=== PATIENT | female | born 1990 | race African-American/Black ===

== ENCOUNTER 2017-12-03 16:30 | Emergency (ER) | payer BC, OTHER ==
--- NOTE | 2017-12-03 17:34 | ER Document Report ---
ED Medical Screen (RME) - General Chief Complaint: Breathing Difficulty Stated Complaint: DIFFICULTY BREATHING Time Seen by Provider: 12/03/17 17:28 Mode of Arrival: Ambulatory Information source: Patient TRAVEL OUTSIDE OF THE [place] IN LAST 30 DAYS: No - HPI Onset: Yesterday Onset/Duration: Gradual, Intermittent Context: Patient has prior history of asthma, asymptomatic for last couple of years. Quality of pain: Other - HEAVINESS Associated Symptoms: Chest pain - DISCOMFORT, Shortness of breath Exacerbated by: Denies Relieved by: Denies Similar symptoms previously: Yes - NOT RECENT Recently seen / treated by doctor: No - Related Data Smoking: Non-smoker Frequency of alcohol use: None Drug Abuse: None Allergies/Adverse Reactions: No Known Allergies Allergy (Verified 12/03/17 16:31) Past Medical History - General Information source: Patient - Social History Cigarette use (# per day): No Chew tobacco use (# tins/day): No Frequency of alcohol use: None Drug Abuse: None Lives with: Spouse/Significant other Family history: None - Past Medical History Cardiac Medical History: Reports: None Pulmonary Medical History: Reports: Hx Asthma Neurological Medical History: Reports: Hx Seizures Endocrine Medical History: Reports: None Renal/ Medical History: Reports: None. Denies: Hx Peritoneal Dialysis Malignancy Medical History: Reports: None GI Medical History: Reports: None Musculoskeltal Medical History: Reports None Psychiatric Medical History: Reports: None Surgical Hx: Negative Review of Systems - Review of Systems Constitutional: No symptoms reported EENT: No symptoms reported Cardiovascular: See HPI Respiratory: See HPI Gastrointestinal: No symptoms reported Female Genitourinary: No symptoms reported Musculoskeletal: No symptoms reported Skin: No symptoms reported Neurological/Psychological: No symptoms reported Physical Exam - Vital signs Vitals: Temp Pulse Resp BP Pulse Ox 98.6 F 82 18 127/75 H 100 12/03/17 16:34 12/03/17 16:34 12/03/17 16:34 12/03/17 16:34 12/03/17 16:34 Interpretation: Normal. No: Tachycardic, Hypoxic, Tachypneic, Febrile - General General appearance: Appears well, Alert In distress: None - HEENT Head: Normocephalic Eyes: Normal Conjunctiva: Normal Ears: Normal Nasal: Normal Mouth/Lips: Normal Mucous membranes: Normal - Respiratory Respiratory status: No respiratory distress Breath sounds: Normal - Cardiovascular Rhythm: Regular Heart sounds: Normal auscultation Murmur: No - Abdominal Inspection: Normal, Obese - Extremities General upper extremity: Normal inspection General lower extremity: Normal inspection. No: Tender, Edema - Neurological Neuro grossly intact: Yes Cognition: Normal Orientation: AAOx4 - Psychological Associated symptoms: Normal affect, Normal mood - Skin Skin Temperature: Warm Skin Moisture: Dry Skin Color: Normal Skin Turgor: Elastic Course - Vital Signs Vital signs: Temp Pulse Resp BP Pulse Ox 98.6 F 82 18 127/75 H 100 12/03/17 16:34 12/03/17 16:34 12/03/17 16:34 12/03/17 16:34 12/03/17 16:34 Doctor's Discharge - Discharge Clinical Impression: Asthma exacerbation, mild Condition: Stable Disposition: HOME, SELF-CARE Instructions: Asthma ([facility]), Inhaled Bronchodilators ([facility]) Additional Instructions: USE ALBUTEROL INHALER DIRECTED, NEEDED FOR ASTHMA SYMPTOMS. AVOID SMOKE, DUST, AND FUMES. FOLLOW UP WITH YOUR PRIMARY CARE PROVIDER. Prescriptions: Albuterol Sulfate [Proair HFA] 8.5 gm IH Q4HP PRN #2 [email or web address] PRN Reason: For Wheezing
[2017-12-03 17:53] VITALS: BP 131/72
== END 2017-12-03 17:55 | disposition home or self-care (01) ==
LOC: ER 16:30
DX: J45.901 Unspecified asthma with (acute) exacerbation (principal)
CPT/HCPCS: 99284

== ENCOUNTER 2017-12-08 09:35 | Emergency (ER) | payer BC ==
--- NOTE | 2017-12-08 10:01 | ER Document Report ---
ED General - General Chief Complaint: Breathing Difficulty Stated Complaint: BREATHING PROBLEMS Time Seen by Provider: 12/08/17 09:44 Mode of Arrival: Ambulatory Information source: Patient Notes: 27-year-old female presents with complaints of shortness of breath chest pressure sensation of three day duration. Patient notes she was seen here diagnosed with asthma exacerbation was then seen by her primary care physician yesterday as well. Patient notes symptoms have not improved. She notes it feels like a tightness on the chest. Patient denies any DVT or PE risk factors , she denies any family history of cardiac concerns except for high blood pressure Patient does admit that she is anxious and stressed, a close family members in the ICU over the past 3 days TRAVEL OUTSIDE OF THE [place] IN LAST 30 DAYS: No - HPI Onset: Other Onset/Duration: Persistent Quality of pain: Achy, Pressure Severity: Mild Pain Level: 1 Associated symptoms: Chest pain, Shortness of breath Exacerbated by: Denies Relieved by: Denies Similar symptoms previously: Yes Recently seen / treated by doctor: Yes - Related Data Allergies/Adverse Reactions: No Known Allergies Allergy (Verified 12/08/17 09:38) Past Medical History - Social History Smoking Status: Never Smoker Cigarette use (# per day): No Chew tobacco use (# tins/day): No Smoking Education Provided: No Family History: Hypertension Pulmonary Medical History: Reports: Hx Asthma Neurological Medical History: Reports: Hx Seizures Renal/ Medical History: Denies: Hx Peritoneal Dialysis Review of Systems - Review of Systems Notes: REVIEW OF SYSTEMS: CONSTITUTIONAL : Denies fever, chills, or sweats. Denies recent illness. EENT: Denies eye, ear, throat, or mouth pain or symptoms. Denies nasal or sinus congestion or discharge. Denies throat, tongue, or mouth swelling or difficulty swallowing. CARDIOVASCULAR: Admits chest pain RESPIRATORY: Admits shortness of breath GASTROINTESTINAL: Denies abdominal pain or distention. Denies nausea, vomiting , or diarrhea. Denies blood in vomitus, stools, or per rectum. Denies black, tarry stools. Denies constipation. GENITOURINARY: Denies difficulty urinating, painful urination, burning, frequency, blood in urine, or discharge. FEMALE GENITOURINARY: Denies vaginal bleeding, heavy or abnormal periods, irregular periods. Denies vaginal discharge or odor. MUSCULOSKELETAL: Denies back or neck pain or stiffness. Denies joint pain or swelling. SKIN: Denies rash, lesions or sores. HEMATOLOGIC : Denies easy bruising or bleeding. LYMPHATIC: Denies swollen, enlarged glands. NEUROLOGICAL: Denies confusion or altered mental status. Denies passing out or loss of consciousness. Denies dizziness or lightheadedness. Denies headache. Denies weakness or paralysis or loss of use of either side. Denies problems with gait or speech. Denies sensory loss, numbness, or tingling. Denies seizures. PSYCHIATRIC: admits to anxiety and stress ALL OTHER SYSTEMS REVIEWED AND NEGATIVE. PHYSICAL EXAMINATION: GENERAL: Well-appearing, well-nourished and in no acute distress. HEAD: Atraumatic, normocephalic. EYES: Pupils equal round and reactive to light, extraocular movements intact, conjunctiva are normal. ENT: Nares patent, oropharynx clear without exudates. Moist mucous membranes. NECK: Normal range of motion, supple without lymphadenopathy LUNGS: Breath sounds clear to auscultation bilaterally and equal. No wheezes rales or rhonchi. HEART: Regular rate and rhythm without murmurs ABDOMEN: Soft, nontender, nondistended abdomen. No guarding, no rebound. No masses appreciated. Female : deferred Musculoskeletal: Normal range of motion, no pitting or edema. No cyanosis. NEUROLOGICAL: Cranial nerves grossly intact. Normal speech, normal gait. Normal sensory, motor exams PSYCH: Normal mood, normal affect. SKIN: Warm, Dry, normal turgor, no rashes or lesions noted. Dictation was performed using [employer] voice recognition software Physical Exam - Vital signs Vitals: Temp Pulse Resp BP Pulse Ox 98.3 F 74 16 123/62 100 12/08/17 09:40 12/08/17 09:40 12/08/17 09:40 12/08/17 09:40 12/08/17 09:40 Course - Re-evaluation Re-evalutation: 12/08/17 10:03 Given that this is the third visit since workup has been ordered, however patient's presentation were consistent with stress and anxiety given family members ill health 12/08/17 11:23 Patient's presentation is consistent with stress, lab work noted no DVT, chest x -ray was normal, she looks well, I will discharge her home with close follow-up with her primary care physician is otherwise her symptoms are none life- threatening at this time After performing a Medical Screening Examination, I estimate there is LOW risk for ACUTE CORONARY SYNDROME, PULMONARY EMBOLI, RESPIRATORY FAILURE, SEPSIS OR MENINGITIS, thus I consider the discharge disposition reasonable. I have reevaluated this patient multiple times and no significant life threatening changes are noted. The patient and I have discussed the diagnosis and risks, and we agree with discharging home with close follow-up. We also discussed returning to the Emergency Department immediately if new or worsening symptoms occur. We have discussed the symptoms which are most concerning (e.g., changing or worsening pain, trouble swallowing or breathing, neck stiffness, fever) that necessitate immediate return. - Vital Signs Vital signs: Temp Pulse Resp BP Pulse Ox 98.3 F 74 20 132/71 H 100 12/08/17 09:40 12/08/17 11:21 12/08/17 11:21 12/08/17 11:21 12/08/17 11:21 - Laboratory Result Diagrams: 12/08/17 10:00 12/08/17 10:00 Laboratory results interpreted by me: 12/08/17 12/08/17 10:00 10:00 Hgb 11.4 L Hct 35.0 L MCV 70 L MCH 22.6 L RDW 18.3 H Chloride 108 H BUN 5 L - Diagnostic Test Radiology reviewed: Image reviewed, Reports reviewed Discharge - Discharge Clinical Impression: Anxiety, SOB (shortness of breath) HTN (hypertension) Qualifiers: Hypertension type: essential hypertension Qualified Code(s): I10 - Essential ( primary) hypertension Condition: Stable Disposition: HOME, SELF-CARE Instructions: Anxiety ([facility]) Additional Instructions: Follow up with your physician tomorrow for further care or return to the ED IMMEDIATELY if symptoms worsen or new concerns occur. If you cannot afford to follow up with your primary care physician a list of low cost clinics have been provided at the end of your discharge papers as well. Prescriptions: Lorazepam [Ativan 0.5 mg Tablet] 0.5 mg PO Q4 PRN #14 tab PRN Reason:
[2017-12-08 10:10] LABS: ABSOLUTE EOSINOPHILS # (AUTO) 0.1 10^3/uL (0.0-0.6); ABSOLUTE LYMPHOCYTES (AUTO) 1.8 10^3/uL (0.5-4.7); ABSOLUTE MONOCYTES (AUTO) 0.2 10^3/uL (0.1-1.4); ABSOLUTE NEUT (AUTO) 1.9 10^3/uL (1.7-8.2); BASOPHILS % (AUTO) 1.1 % (0-2); EOSINOPHILS % (AUTO) 3.5 % (0-6); HEMOGLOBIN 11.4 g/dL (12.0-15.5); LYMPHOCYTES % (AUTO) 42.9 % (13-45); MEAN CORPUSCULAR HEMOGLOBIN 22.6 pg (27.0-33.4); MEAN CORPUSCULAR HGB CONC 32.5 g/dL (32.0-36.0); MEAN CORPUSCULAR VOLUME 70 fl (80-97); PLATELET COUNT 309 10^3/uL (150-450); RED BLOOD COUNT 5.02 10^6/uL (3.72-5.28); RED CELL DISTRIBUTION WIDTH 18.3 % (11.5-14.0); SEGMENTED NEUTROPHILS % (AUTO) 46.5 % (42-78); TOTAL CELLS COUNTED % (AUTO) 100 %; WHITE BLOOD COUNT 4.1 10^3/uL (4.0-10.5)
[2017-12-08 10:27] LABS: ALANINE AMINOTRANSFERASE 20 U/L (9-52); ALBUMIN 4.6 g/dL (3.5-5.0); ALKALINE PHOSPHATASE 61 U/L (38-126); ANION GAP 12 (5-19); ASPARTATE AMINO TRANSFERASE 14 U/L (14-36); BILIRUBIN,DIRECT 0.1 mg/dL (0.0-0.4); BILIRUBIN,TOTAL 0.4 mg/dL (0.2-1.3); BLOOD UREA NITROGEN 5 mg/dL (7-20); CALCIUM 10.1 mg/dL (8.4-10.2); CARBON DIOXIDE 24 mmol/L (22-30); CHLORIDE 108 mmol/L (98-107); CREATINE KINASE 106 U/L (30-135); GLUCOSE 83 mg/dL (75-110); POTASSIUM 3.9 mmol/L (3.6-5.0); SODIUM 144.1 mmol/L (137-145); TOTAL PROTEIN 6.9 g/dL (6.3-8.2)
[2017-12-08 10:39] LABS: CREATINE KINASE MB 0.48 ng/mL (<4.55)
[2017-12-08 10:51] LABS: TROPONIN I < 0.012 ng/mL
--- NOTE | 2017-12-08 11:11 | RADIOLOGY REPORT (SQ) ---
EXAM DESCRIPTION: CHEST PA/LAT COMPLETED DATE/TIME: 12/08/2017 10:35 am REASON FOR STUDY: sob COMPARISON: None. NUMBER OF VIEWS: Two view. TECHNIQUE: Frontal and lateral radiographic views of the chest acquired. LIMITATIONS: None. FINDINGS: LUNGS AND PLEURA: No opacities, masses or pneumothorax. No pleural effusion. MEDIASTINUM AND HILAR STRUCTURES: No masses or contour abnormalities. HEART AND VASCULATURE: Heart normal size. No evidence for failure. BONY STRUCTURES: No acute findings. HARDWARE: None. OTHER: No other significant finding. IMPRESSION: NO SIGNIFICANT RADIOGRAPHIC FINDING IN THE CHEST. TECHNICAL DOCUMENTATION: JOB ID: [id number] [employer]- All Rights Reserved
[2017-12-08 11:22] VITALS: BP 132/71
--- NOTE | 2017-12-08 13:26 | EKG REPORT ---
SEVERITY:- ABNORMAL ECG - SINUS RHYTHM MULTIPLE VENTRICULAR PREMATURE COMPLEXES NONSPECIFIC INTRAVENTRICULAR CONDUCTION DELAY DIFFUSE NONSPECIFIC ST-T CHANGES : Confirmed by: Jagdeep Landers MD 08-Dec-2017 13:26:21
== END 2017-12-08 11:29 | disposition home or self-care (01) ==
LOC: ER 09:35
DX: R06.02 Shortness of breath (principal); F41.8 Other specified anxiety disorders; I10 Essential (primary) hypertension; R07.9 Chest pain, unspecified; R06.00 Dyspnea, unspecified
CPT/HCPCS: 36415; 71046; 80053; 82550; 82553; 84484; 85025; 85379; 93005; 93010; 99285

== ENCOUNTER 2019-06-20 14:07 | Emergency (ER) | payer OTHER, BC ==
[2019-06-20 14:20] VITALS: BP 139/79
[2019-06-20] MEDS ORDERED: METHOCARBAMOL 500 MG TABLET PO ONE (15:12)
[2019-06-20] MEDS ORDERED: IBUPROFEN 800 MG TABLET PO ONE (15:12)
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
== END 2019-06-20 15:54 | disposition home or self-care (01) ==
LOC: ER 14:07
DX: S20.212A Contusion of left front wall of thorax, initial encounter (principal); T14.8XXA Other injury of unspecified body region, initial encounter; M54.2 Cervicalgia; M54.9 Dorsalgia, unspecified; R07.89 Other chest pain; V43.52XA Car driver injured in collision with other type car in traffic accident, initial encounter; J45.909 Unspecified asthma, uncomplicated
CPT/HCPCS: 71046; 72052; 99283

== ENCOUNTER 2020-10-21 20:43 | Emergency (ER) | payer BC, OTHER ==
--- NOTE | 2020-10-21 22:16 | ER Document Report ---
ED Respiratory Problem - General Chief Complaint: Congestion Stated Complaint: DIZZINESS,WEAKNESS,FACIAL TINGLING Time Seen by Provider: 10/21/20 22:04 Mode of Arrival: Ambulatory Information source: Patient TRAVEL OUTSIDE OF THE [place] IN LAST 30 DAYS: No - HPI Patient complains to provider of: Other - Nasal congestion, sinus pain Notes: Patient here with complaints of nasal congestion, sinus pain. The patient states that she has history of chronic sinus problems. She is currently on Benadryl. She supposed be taking Flonase but has not been taking it because she is been having some nosebleeds. She thinks that she has a sinus infection. She reports being on Augmentin and currently taking Levaquin but continued to have sinus pressure. She states that she has an ENT, but she has not followed up with her ENT regarding this. She denies any fever. No blurred or lost vision. No numbness, tingling, weakness. No chest pain or shortness of breath. No abdominal pain. No nausea, vomiting, diarrhea. No rash. Nothing seems to make symptoms better or worse. - Related Data Allergies/Adverse Reactions: No Known Allergies Allergy (Verified 10/21/20 22:01) Past Medical History - Social History Smoking Status: Never Smoker Frequency of alcohol use: None Drug Abuse: None Family History: Hypertension Pulmonary Medical History: Reports: Hx Asthma Neurological Medical History: Reports: Hx Seizures Renal/ Medical History: Denies: Hx Peritoneal Dialysis Review of Systems - Review of Systems -: Yes All other systems reviewed and negative Physical Exam - Notes Notes: GENERAL: alert, cooperative, nontoxic, no distress. HEAD: normocephalic, atraumatic EYES: conjunctiva pink without discharge, no external redness or swelling. EARS: no external swelling, no external redness, no mastoid redness, swelling, tenderness. Ear canals are clear without swelling or drainage. TMs pearly flores, no redness, no bulging, normal landmarks, no perforation. NOSE: atraumatic, no external swelling. clear rhinorrhea noted. MOUTH/THROAT: mucous membranes moist and pink, posterior pharynx without erythema, swelling, exudate. No trismus or drooling. Voice is normal, no stridor. NECK: soft, supple, full range of motion, no meningismus. CHEST: no distress, lungs clear and equal throughout. No wheezing, rales, rhonchi. CARDIAC: regular rate and rhythm, no murmur EXTREMITIES: full range of motion of all extremities. No redness, no swelling. NEURO: alert and oriented A&O3, no focal deficits, full range of motion of all extremities. PYSCH: appropriate mood, affect. Patient is cooperative. SKIN: pink, warm, dry, no rash. Course - Re-evaluation Re-evalutation: 10/21/20 22:13 Patient is nontoxic-appearing stable vitals. Here with complaints of continued sinus congestion and pressure despite being on Augmentin and now currently on Levaquin. The patient has a history of chronic sinus disease. She sees Dr. Llamas of the ENT. She supposed to be taking Flonase but states that she has been having some nosebleeds though she is not taking her Flonase. She is has been taking Benadryl. This point the patient looks well. She is afebrile. She is a nonfocal neuro exam. I did offer her some oral steroids which the patient declined. I also offered Sudafed and Afrin which the patient declined. She states that she would like to have a CT of her sinuses. I explained that sinus CTs are not indicated for diagnosing a sinus infection and that would not ne cessarily change the management at this time as the patient is already on a very strong antibiotic. All the treatment options that I offered were declined by the patient. This point I believe she would be best served if she followed back up with her ENT. She was instructed to follow-up with her ENT at the next available appointment. Certainly return/follow-up sooner for worsening pain, fever, swelling, persistent vomiting, or any further concerns. The patient's emergency department workup and current diagnosis were explained to the patient and or family. Follow-up instructions were provided. Medications if prescribed were discussed. Instructions for when to return to the emergency department including specific worrisome symptoms were discussed with the patient and/or family. - Laboratory Results Critical Laboratory Results Reviewed: No Critical Results - Radiology Results Critical Radiology Results Reviewed: No Critical Results Discharge - Discharge Clinical Impression: Sinus pain Condition: Stable Disposition: HOME, SELF-CARE Instructions: Sinusitis ([facility]) Additional Instructions: Continue taking your medications you have. You can try [id number] Afrin nasal spray for 3 days and also [id number] Sudafed to help with your sinus pressure. I would recommend following up with your ENT at the next available appointment for reevaluation. Follow-up sooner for worsening pain, high fever, persistent vomiting, unilateral numbness, tingling, weakness, or any further concerns. Referrals: ZELALEM LLAMAS MD [NO LOCAL MD] - Follow up as needed
[2020-10-21 22:41] VITALS: BP 134/88
== END 2020-10-21 23:12 | disposition home or self-care (01) ==
LOC: ER 20:43
DX: J32.9 Chronic sinusitis, unspecified (principal); T49.6X6A Underdosing of otorhinolaryngological drugs and preparations, initial encounter; Z91.128 Patient's intentional underdosing of medication regimen for other reason; J34.89 Other specified disorders of nose and nasal sinuses; R09.81 Nasal congestion; Z79.899 Other long term (current) drug therapy
CPT/HCPCS: 99282